=== PATIENT | male | born 1965 | race Caucasian/White ===

== ENCOUNTER → 2021-03-15 | Outpatient (CLI) | payer SELFPAY ==
[2016-06-26 14:48] VITALS: BMI 31.8
[2021-03-15 15:52] LABS: Pathologist Comment/Body Fluid May follow
[2021-03-15 20:44] LABS: Auto B Fluid Analyzer BKGD Ct COUNTS W/IN LIMITS (W/IN LIMITS); Source- Body Fluid OTHER
[2021-03-15 20:45] LABS: Appearance/Body Fluid TURBID; Body Fluid Total Cells Counted 29.408 10^3/ul; Color/Body Fluid YELLOW; Red Cell Count/Body Fluid 0.004 10^6/ul
[2021-03-15 20:46] LABS: CRYSTALS, BODY FLUID See PATH REV; Monocytes 15 %; Neutrophil (Segs) 85 %; Source- Body Fluid SYNOVIAL
[2021-03-15 20:47] LABS: Body Fluid QC Type(s) BF1Q,BF2Q
[2021-03-16 11:58] LABS: Pathologist Review Reviewed
== END | disposition home or self-care (01) ==
LOC: MTLAB 15:43 → LABSPEC 15:45
PROVIDERS: PCP Family Medicine; Referring Provider Specialist; Visit Provider Specialist
DX: M25.461 Effusion, right knee (principal)
CPT/HCPCS: 89050; 89060